=== PATIENT | female | born 1990 | race Caucasian/White ===

== ENCOUNTER 2017-11-18 20:29 | Emergency (ER) | payer OTHER ==
--- NOTE | 2017-11-18 21:42 | ED ---
General Adult HPI - General Chief complaint: Abdominal Pain Stated complaint: upper abdominal pain/blood in stool Time Seen by Provider: 11/18/17 21:28 Source: patient, RN notes reviewed, old records reviewed Mode of arrival: ambulatory Limitations: no limitations - History of Present Illness Initial comments: 26-year-old female presents for evaluation of abdominal pain and rectal bleeding. Patient states she has had intermittent abdominal pain for the past 4 days. This is been accompanied by significant amount of diarrhea. Over the past 24 hours or diarrhea has improved she still had intermittent crampy abdominal pain which is primarily epigastric although it is somewhat generalized as well. Today she developed 2 episodes of rectal bleeding. First episode was with bowel movement was small amount of blood-tinged second episode was brought alone with no stools was bright red. No history of ulcerative colitis or Crohn's disease. No recent travel. She states her pain is still present however it is improved. Has been approximately every 45 minutes with relief in between episodes. - Related Data Home Medications Medication Instructions Recorded Confirmed No Known Home Medications 11/18/17 11/18/17 Allergies Allergy/AdvReac Type Severity Reaction Status Date / Time No Known Allergies Allergy Verified 11/18/17 21:06 Review of Systems ROS Statement: Those systems with pertinent positive or pertinent negative responses have been documented in the HPI. ROS Other: All systems not noted in ROS Statement are negative. Past Medical History Past Medical History: No Reported History Additional Past Medical History / Comment(s): Patient has a history of renal calculi. degenerative disc o History of Any Multi-Drug Resistant Organisms: None Reported Past Surgical History: Ear Surgery Additional Past Surgical History / Comment(s): lithotripsy Past Anesthesia/Blood Transfusion Reactions: No Reported Reaction Past Psychological History: No Psychological Hx Reported Smoking Status: Current every day smoker Past Alcohol Use History: Occasional Past Drug Use History: None Reported - Past Family History Mother Family Medical History: No Reported History General Exam Limitations: no limitations General appearance: alert, in no apparent distress Head exam: Present: atraumatic, normocephalic Eye exam: Present: normal appearance, PERRL, EOMI Neck exam: Present: normal inspection. Absent: tenderness, meningismus Respiratory exam: Present: normal lung sounds bilaterally. Absent: respiratory distress Cardiovascular Exam: Present: regular rate, normal rhythm GI/Abdominal exam: Present: soft, tenderness (Epigastric tenderness to palpation ). Absent: distended, guarding, rebound Rectal exam: Present: normal inspection. Absent: black stool, bloody stool, hemorrhoids Extremities exam: Present: normal inspection, normal capillary refill. Absent: pedal edema Neurological exam: Present: alert, oriented X3, CN II-XII intact. Absent: motor sensory deficit Psychiatric exam: Present: normal affect, normal mood Skin exam: Present: warm, dry, intact. Absent: cyanosis, diaphoretic Course Vital Signs 11/18/17 20:45 Temperature 98.2 F Pulse Rate 96 Respiratory 18 Rate Blood Pressure 115/78 O2 Sat by Pulse 99 Oximetry Medical Decision Making - Medical Decision Making 26-year-old female presenting with diarrhea for 4 days which became bloody and crampy abdominal pain. Laboratory studies reveal stable hemoglobin 14.9, mildly leukocyte ptosis at 13.1, S are normal, urinalysis is negative, occult blood is positive, no melena or bright red rectal bleeding. No gross hemorrhage. X-ray negative for obstruction or free air. Patient's history is concerning for colitis. She is offered computed tomography scan for additional evaluation, she declines, she prefers to be discharged home. She is well- appearing, abdomen is soft with no peritoneal signs. She will be discharged home she will monitor stool output. She will follow-up with her primary care physician for reevaluation. - Lab Data Result diagrams: 11/18/17 21:43 11/18/17 21:43 Lab Results 11/18/17 11/18/17 11/18/17 Range/Units 21:36 21:36 21:38 WBC (3.8-10.6) k/uL RBC (3.80-5.40) m/uL Hgb (11.4-16.0) gm/dL Hct (34.0-46.0) % MCV (80.0-100.0) fL MCH (25.0-35.0) pg MCHC (31.0-37.0) g/dL RDW (11.5-15.5) % Plt Count (150-450) k/uL Neutrophils % % Lymphocytes % % Monocytes % % Eosinophils % % Basophils % % Neutrophils # (1.3-7.7) k/uL Lymphocytes # (1.0-4.8) k/uL Monocytes # (0-1.0) k/uL Eosinophils # (0-0.7) k/uL Basophils # (0-0.2) k/uL PT (9.0-12.0) sec INR (<1.2) APTT (22.0-30.0) sec Sodium (137-145) mmol/L Potassium (3.5-5.1) mmol/L Chloride (98-107) mmol/L Carbon Dioxide (22-30) mmol/L Anion Gap mmol/L BUN (7-17) mg/dL Creatinine (0.52-1.04) mg/dL Est GFR (CKD-EPI)AfAm (>60 ml/min/1.73 sqM) Est GFR (CKD-EPI)NonAf (>60 ml/min/1.73 sqM) Glucose (74-99) mg/dL Plasma Lactic Acid Mason (0.7-2.0) mmol/L Calcium (8.4-10.2) mg/dL Total Bilirubin (0.2-1.3) mg/dL AST (14-36) U/L ALT (9-52) U/L Alkaline Phosphatase (38-126) U/L Total Protein (6.3-8.2) g/dL Albumin (3.5-5.0) g/dL Amylase (30-110) U/L Lipase (23-300) U/L Urine Color Light Yellow Urine Appearance Cloudy H (Clear) Urine pH 6.5 (5.0-8.0) Ur Specific [place] 1.013 (1.001-1.035) Urine Protein Negative (Negative) Urine Glucose (UA) Negative (Negative) Urine Ketones Negative (Negative) Urine Blood Negative (Negative) Urine Nitrite Negative (Negative) Urine Bilirubin Negative (Negative) Urine Urobilinogen <2.0 (<2.0) mg/dL Ur Leukocyte Esterase Negative (Negative) Ur Squamous Epith Cells <1 (0-4) /hpf Amorphous Sediment Occasional H (None) /hpf Urine Mucus Rare H (None) /hpf Urine HCG, Qual Not Detected (Not Detectd) Stool Occult Blood Positive H (Negative) 11/18/17 11/18/17 11/18/17 Range/Units 21:43 21:43 21:43 WBC 13.1 H (3.8-10.6) k/uL RBC 4.97 (3.80-5.40) m/uL Hgb 14.9 (11.4-16.0) gm/dL Hct 42.7 (34.0-46.0) % MCV 85.9 (80.0-100.0) fL MCH 30.0 (25.0-35.0) pg MCHC 34.9 (31.0-37.0) g/dL RDW 13.7 (11.5-15.5) % Plt Count 129 L (150-450) k/uL Neutrophils % 62 % Lymphocytes % 28 % Monocytes % 5 % Eosinophils % 3 % Basophils % 1 % Neutrophils # 8.1 H (1.3-7.7) k/uL Lymphocytes # 3.6 (1.0-4.8) k/uL Monocytes # 0.7 (0-1.0) k/uL Eosinophils # 0.4 (0-0.7) k/uL Basophils # 0.1 (0-0.2) k/uL PT (9.0-12.0) sec INR (<1.2) APTT (22.0-30.0) sec Sodium 140 (137-145) mmol/L Potassium 4.0 (3.5-5.1) mmol/L Chloride 104 (98-107) mmol/L Carbon Dioxide 23 (22-30) mmol/L Anion Gap 13 mmol/L BUN 13 (7-17) mg/dL Creatinine 0.72 (0.52-1.04) mg/dL Est GFR (CKD-EPI)AfAm >90 (>60 ml/min/1.73 sqM) Est GFR (CKD-EPI)NonAf >90 (>60 ml/min/1.73 sqM) Glucose 92 (74-99) mg/dL Plasma Lactic Acid Mason 0.7 (0.7-2.0) mmol/L Calcium 9.4 (8.4-10.2) mg/dL Total Bilirubin 0.3 (0.2-1.3) mg/dL AST 31 (14-36) U/L ALT 39 (9-52) U/L Alkaline Phosphatase 90 (38-126) U/L Total Protein 6.9 (6.3-8.2) g/dL Albumin 4.2 (3.5-5.0) g/dL Amylase 46 (30-110) U/L Lipase 139 (23-300) U/L Urine Color Urine Appearance (Clear) Urine pH (5.0-8.0) Ur Specific [place] (1.001-1.035) Urine Protein (Negative) Urine Glucose (UA) (Negative) Urine Ketones (Negative) Urine Blood (Negative) Urine Nitrite (Negative) Urine Bilirubin (Negative) Urine Urobilinogen (<2.0) mg/dL Ur Leukocyte Esterase (Negative) Ur Squamous Epith Cells (0-4) /hpf Amorphous Sediment (None) /hpf Urine Mucus (None) /hpf Urine HCG, Qual (Not Detectd) Stool Occult Blood (Negative) 11/18/17 Range/Units 21:43 WBC (3.8-10.6) k/uL RBC (3.80-5.40) m/uL Hgb (11.4-16.0) gm/dL Hct (34.0-46.0) % MCV (80.0-100.0) fL MCH (25.0-35.0) pg MCHC (31.0-37.0) g/dL RDW (11.5-15.5) % Plt Count (150-450) k/uL Neutrophils % % Lymphocytes % % Monocytes % % Eosinophils % % Basophils % % Neutrophils # (1.3-7.7) k/uL Lymphocytes # (1.0-4.8) k/uL Monocytes # (0-1.0) k/uL Eosinophils # (0-0.7) k/uL Basophils # (0-0.2) k/uL PT 9.4 (9.0-12.0) sec INR 0.9 (<1.2) APTT 23.0 (22.0-30.0) sec Sodium (137-145) mmol/L Potassium (3.5-5.1) mmol/L Chloride (98-107) mmol/L Carbon Dioxide (22-30) mmol/L Anion Gap mmol/L BUN (7-17) mg/dL Creatinine (0.52-1.04) mg/dL Est GFR (CKD-EPI)AfAm (>60 ml/min/1.73 sqM) Est GFR (CKD-EPI)NonAf (>60 ml/min/1.73 sqM) Glucose (74-99) mg/dL Plasma Lactic Acid Mason (0.7-2.0) mmol/L Calcium (8.4-10.2) mg/dL Total Bilirubin (0.2-1.3) mg/dL AST (14-36) U/L ALT (9-52) U/L Alkaline Phosphatase (38-126) U/L Total Protein (6.3-8.2) g/dL Albumin (3.5-5.0) g/dL Amylase (30-110) U/L Lipase (23-300) U/L Urine Color Urine Appearance (Clear) Urine pH (5.0-8.0) Ur Specific [place] (1.001-1.035) Urine Protein (Negative) Urine Glucose (UA) (Negative) Urine Ketones (Negative) Urine Blood (Negative) Urine Nitrite (Negative) Urine Bilirubin (Negative) Urine Urobilinogen (<2.0) mg/dL Ur Leukocyte Esterase (Negative) Ur Squamous Epith Cells (0-4) /hpf Amorphous Sediment (None) /hpf Urine Mucus (None) /hpf Urine HCG, Qual (Not Detectd) Stool Occult Blood (Negative) Disposition Clinical Impression: Abdominal pain Disposition: HOME SELF-CARE Condition: Stable Instructions: Abdominal Pain (ED), Colitis (ED) Is patient prescribed a controlled substance at d/c from ED?: No Referrals: Norma Allred MD [Primary Care Provider] - 1-2 days Time of Disposition: 23:07
[2017-11-18 21:56] LABS: Basophils # (A) 0.1 k/uL (0-0.2); Basophils % (A) 1 %; Eosinophils # (A) 0.4 k/uL (0-0.7); Eosinophils % (A) 3 %; HCT 42.7 % (34.0-46.0); HGB 14.9 gm/dL (11.4-16.0); Lymphocytes # (A) 3.6 k/uL (1.0-4.8); Lymphocytes % (A) 28 %; MCHC 34.9 g/dL (31.0-37.0); MCV 85.9 fL (80.0-100.0); Monocytes # (A) 0.7 k/uL (0-1.0); Monocytes % (A) 5 %; Neutrophils # (A) 8.1 k/uL (1.3-7.7); Neutrophils % (A) 62 %; Platelet Count 129 k/uL (150-450); RBC 4.97 m/uL (3.80-5.40); RDW 13.7 % (11.5-15.5); WBC 13.1 k/uL (3.8-10.6)
[2017-11-18 22:00] LABS: Amorphous Sediment,Urine Occasional /hpf; Appearance,Urine Cloudy (Clear); Bilirubin,Urine Negative (Negative); Blood,Urine Negative (Negative); Color,Urine Light Yellow; Glucose,Urine (UA) Negative (Negative); Ketones,Urine Negative (Negative); Leukocyte Esterase,Urine Negative (Negative); Mucus,Urine Rare /hpf; Nitrite,Urine Negative (Negative); PH, Urine 6.5 (5.0-8.0); Protein,Urine Negative (Negative); Specific Gravity,Urine 1.013 (1.001-1.035); Squamous Epithelial Cell,Urine <1 /hpf (0-4); Urobilinogen,Urine <2.0 mg/dL (<2.0)
[2017-11-18 22:05] LABS: INR 0.9 (<1.2); Prothrombin Time 9.4 sec (9.0-12.0)
--- NOTE | 2017-11-18 22:07 | XR ---
EXAMINATION TYPE: XR KUB 2 views DATE OF EXAM: 11/18/2017 COMPARISON: 02/17/2012 HISTORY: Upper abdominal pain and bright red rectal bleeding. TECHNIQUE: 2 upright views FINDINGS: The visualized lung bases and pleural spaces are negative. There is no pneumoperitoneum or pneumatosis. Bowel gas pattern is unremarkable. No acute soft tissue or skeletal findings. IMPRESSION: Negative examination.
[2017-11-18 22:09] LABS: ALT 39 U/L (9-52); AST 31 U/L (14-36); Albumin 4.2 g/dL (3.5-5.0); Alkaline Phosphatase 90 U/L (38-126); Amylase 46 U/L (30-110); Anion Gap 13 mmol/L; Blood Urea Nitrogen 13 mg/dL (7-17); Calcium 9.4 mg/dL (8.4-10.2); Carbon Dioxide 23 mmol/L (22-30); Chloride 104 mmol/L (98-107); Glucose 92 mg/dL (74-99); Lipase 139 U/L (23-300); Sodium 140 mmol/L (137-145); Total Bilirubin 0.3 mg/dL (0.2-1.3); Total Protein 6.9 g/dL (6.3-8.2)
[2017-11-18 23:25] VITALS: BP 132/59; PULSE 66; RESP 16; TEMP 96.7
== END 2017-11-18 23:25 | disposition home or self-care (01) ==
LOC: EC 20:29
DX: R10.13 Epigastric pain (principal); D72.829 Elevated white blood cell count, unspecified; R10.84 Generalized abdominal pain; R19.7 Diarrhea, unspecified; F17.200 Nicotine dependence, unspecified, uncomplicated
CPT/HCPCS: 36415; 74018; 80053; 81001; 81025; 82150; 82272; 83605; 83690; 85025; 85610; 85730; 99284

== ENCOUNTER 2018-01-19 08:52 | Day surgery (SDC) | payer OTHER ==
[2018-01-14 13:18] VITALS: BMI 34.7
[~2018-01-19 08:52] MED LIST: LACTATED RINGERS 1,000 ML IV SCH; LIDOCAINE 1% 20 ML VIAL (10MG/ML) FOR IV START INTRADERMA PRN
[2018-01-19 09:16] VITALS: TEMP 97.7
[2018-01-19] MEDS ORDERED: LACTATED RINGERS 1,000 ML IV ONE (09:26)
[2018-01-19] MEDS ORDERED: PROPOFOL 10 MG/ML 20 ML VIAL IV ONE (10:12)
--- NOTE | 2018-01-19 10:49 | P.PCN ---
Date of Procedure: 01/19/18 Procedure(s) Performed: Procedure: Colonoscopy and biopsy. Preoperative diagnosis: Rectal bleeding. Postoperative diagnosis: Diminutive polyp in the distal sigmoid biopsied, otherwise, exam of the colon and terminal ileum within normal limits. Preparation: HalfLytely prep. Sedation: Was provided by anesthesia. Brief clinical history: The patient is a 27-year-old female who is scheduled for this evaluation because of history of diarrhea and rectal bleeding. The patient reported an illness with diarrhea followed by 6 days of bleeding that has since improved. The patient is symptom free for the last month. There was concern of colitis and she was thus scheduled for this evaluation. The patient has no extraintestinal manifestations of inflammatory bowel disease. No family history of inflammatory bowel disease. She has no rectal symptoms at this time. Procedure: With the patient on her left lateral decubitus position and after informed consent and adequate sedation, the perianal area was inspected and it did not show any fissures or fistulas. There were no masses felt on digital rectal examination. The Olympus CFQ 160L video colonoscope was then inserted in the rectum in the usual fashion and advanced to the cecum. I intubated the ileocecal valve and examined the terminal ileum. Terminal ileum and colon appeared healthy with no edema, erythema, friability, ulceration, exudation or spontaneous bleeding. No obvious diverticular disease. There was a diminutive polyp in the distal sigmoid which I biopsied. I retroflexed the endoscope in the rectum before the endoscope was withdrawn. No significant findings were seen or any evidence of bleeding. The patient tolerated the procedure well. Plan: The patient was reassured. It is likely that her illness was a self- limited colitis or a bout of gastroenteritis from which she has fully recovered. She will follow-up with you as planned and I will be happy to see in the future if her symptoms recur.
[2018-01-19 11:02] VITALS: BP 105/67; PULSE 73; RESP 16
== END 2018-01-19 11:42 | disposition home or self-care (01) ==
LOC: ORWHC2ENDO 08:52
DX: K63.5 Polyp of colon (principal); F17.210 Nicotine dependence, cigarettes, uncomplicated; Z87.442 Personal history of urinary calculi
CPT/HCPCS: 81025; 88305; 45380; J2704

== ENCOUNTER 2018-06-14 13:38 | Emergency (ER) | payer OTHER ==
[2018-06-14] MEDS ORDERED: DIAZEPAM 5 MG/ML 2 ML INJ IM ONE (14:24)
[2018-06-14] MEDS ORDERED: KETOROLAC 30 MG/ML 1 ML VIAL IM STA (14:24)
--- NOTE | 2018-06-14 14:35 | ED ---
Neck Injury/Pain HPI - General Chief Complaint: Neck Pain/Injury Stated Complaint: neck and arm pain Mode of arrival: ambulatory Limitations: no limitations - History of Present Illness Initial Comments: 27-year-old female past medical history of degenerative disc disease of the cervical spine presenting today for chief complaint of right-sided neck and shoulder pain x1 day. Patient states that she was shoveling snow and did a lot of cleaning yesterday. Yesterday evening she noticed right-sided posterior neck pain that radiated towards right shoulder. Describes it as a sharp shooting pain. She states with movement she feels muscle spasm throughout her posterior neck and down her arm with movement of neck or right shoulder. Patient denies any loss of sensation, coolness, pallor, denies inability to move right shoulder, but states she does not want to because it will cause spasm in her neck. Pt states pain increases with rotation toward the right shoulder. Pt denies falling, hitting head or neck, new low back pain, headache, photophobia, fever, chills, nausea, vomiting, dizziness, visual changes, diplopia or any other changes. Pt denies weakness of the UE. Remainder of ROS negative, patient denies any recent shortness of breath, chest pain, abdominal pain, numbness or , dysuria or hematuria, constipation or diarrhea, headaches or visual changes, or any other complaints. Upon arrival pt refused to turn head to the right, appears uncomfortable. HR elevated mildly. - Related Data Previous Rx's Medication Instructions Recorded Cyclobenzaprine [Flexeril] 5 mg PO TID 5 Days #15 tablet 06/14/18 Ibuprofen 800 mg PO Q8H PRN 7 Days #21 tablet 06/14/18 Allergies Allergy/AdvReac Type Severity Reaction Status Date / Time No Known Allergies Allergy Verified 06/14/18 14:04 Review of Systems ROS Statement: Those systems with pertinent positive or pertinent negative responses have been documented in the HPI. ROS Other: All systems not noted in ROS Statement are negative. Past Medical History Past Medical History: GI Bleed, Musculoskeletal Disorder Additional Past Medical History / Comment(s): Hx kidney stones; degenerative disc History of Any Multi-Drug Resistant Organisms: None Reported Past Surgical History: Ear Surgery, Tubal Ligation Additional Past Surgical History / Comment(s): lithotripsy Past Anesthesia/Blood Transfusion Reactions: No Reported Reaction Past Psychological History: No Psychological Hx Reported Smoking Status: Current every day smoker - Past Family History Mother Family Medical History: No Reported History General Exam - General Exam Comments Initial Comments: General: The patient is awake and alert, in no distress. Appear uncomfortable holding neck to the left. Eye: +3 mm pupils are equal, round and reactive to light, extra-ocular movements are intact. No nystagmus. There is normal conjunctiva bilaterally. No signs of icterus. Ears, nose, mouth and throat: There are moist mucous membranes and no oral lesions. Neck: The neck is supple, there is no tenderness or JVD. Tenderness to palpation of the right paravertebral muscles, palpable spasm. Small knot noted. Patient refuses to turn head to the right, induces spasm. No midline tenderness to patient of the cervical thoracic spine. No carotid artery bruits. Cardiovascular: There is a regular rate and rhythm. No murmur, rub or gallop is appreciated. Respiratory: Lungs are clear to auscultation, respirations are non-labored, breath sounds are equal. No wheezes, stridor, rales, or rhonchi. Musculoskeletal: Normal ROM of the UE with tenderness of the right shoulder/ neck with ROM. Pt refuses to range right shoulder secondary to muscle spasm of neck. Strength 5/5 of the UE (tested elbow and below of the right UE). Sensation intact of the UE b/l from shoulder (badge region to the hand). Radial pulses equal bilaterally 2+. Patient is able to make the okay, fingers crossed , thumbs-up and extend at the wrist bilaterally. No noted weakness on the right or left upper extremity. Neurological: A&O x 3. CN II-XII intact, There are no obvious motor or sensory deficits. Coordination appears grossly intact. Speech is normal. Skin: Skin is warm and dry and no rashes or lesions are noted. Psychiatric: Cooperative, appropriate mood & affect, normal judgment. Limitations: no limitations Course Vital Signs 06/14/18 06/14/18 14:02 15:35 Temperature 98.2 F 98.7 F Pulse Rate 104 H 84 Respiratory 16 18 Rate Blood Pressure 121/87 110/69 O2 Sat by Pulse 100 99 Oximetry Medical Decision Making - Medical Decision Making Pt denies stating she is "fixed". Physical examination and history concerning for muscle spasm, cervical spine strain. Pt neurovascular intact. Given no history of trauma or injury to the neck I have no suspicion for osseous injury. Patient will be given Valium for muscle spasm as well as Toradol for pain management. Patient be discharged with muscle relaxer as well as ibuprofen 800. Patient is instructed to apply heat for 20 minutes at a time with 20 minutes in between applications, up to 6 times a day for comfort. Pt is to f/u with primary care provider in the next 1-2 days. Pt is agreeable with plan and discharge. Discussed case with Dr. Joseph who agreed with the impression and plan. Patient discharged in stable condition. Disposition Clinical Impression: Cervical muscle strain, Muscle spasm Disposition: HOME SELF-CARE Instructions (If sedation given, give patient instructions): Cervical Strain ( ED) Additional Instructions: Please use medication as discussed, no driving, operating machinery, working drinking alcohol using opioids are benzos as discussed all taking the medication Flexeril. Please follow-up with family doctor in the next 2 days, please follow-up with her pain specialist as scheduled. Please see orthopedic surgery in the next 1-2 days for further evaluation. Please return to emergency room if the symptoms increase, persist or worsen or for any other concerns, as discussed. Prescriptions: Cyclobenzaprine [Flexeril] 5 mg PO TID 5 Days #15 tablet Ibuprofen 800 mg PO Q8H PRN 7 Days #21 tablet PRN Reason: Pain Is patient prescribed a controlled substance at d/c from ED?: No Referrals: Norma Allred MD [Primary Care Provider] - 1-2 days Karthik Addison MD [Medical Doctor] - 1-2 days Time of Disposition: 14:39
[2018-06-14 15:37] VITALS: BP 110/69; PULSE 84; RESP 18; TEMP 98.7
== END 2018-06-14 15:35 | disposition home or self-care (01) ==
LOC: EC 13:38
DX: S16.1XXA Strain of muscle, fascia and tendon at neck level, initial encounter (principal); M25.511 Pain in right shoulder; M62.838 Other muscle spasm; F17.200 Nicotine dependence, unspecified, uncomplicated; Y93.H1 Activity, digging, shoveling and raking; Y93.E5 Activity, floor mopping and cleaning; X50.9XXA Other and unspecified overexertion or strenuous movements or postures, initial encounter
CPT/HCPCS: 99283 ×2; 96372 ×3; J3360; J1885

== ENCOUNTER → 2020-06-01 | Outpatient (CLI) | payer OTHER ==
--- NOTE | 2020-06-01 16:06 | MR ---
EXAMINATION TYPE: MR lumbar spine wo con DATE OF EXAM: 06/01/2020 COMPARISON: MRI lumbar spine July 01, 2013 HISTORY: Low back pain that travels down right leg. Multiple [place]. TECHNIQUE: Multiplanar, multisequence imaging of the lumbar spine is performed without IV contrast. FINDINGS: Will use same counting sequences used as on prior MRI study. Sagittal images of the lumbar spine show vertebral body heights to remain satisfactory. Slight grade 1 retrolisthesis L4 on L5. Dis c desiccation L4-L5 level with mild to moderate disc space narrowing redemonstrated otherwise the int ervertebral discs demonstrate normal heights and hydration. There is at least partial sacralization possible bilateral sacralization of the labeled L5 segment The conus medullaris remains normal in pos ition and signal ending in inferior T12 level. The bone marrow signal intensity is within normal moise its. Axial images show T12-L1, L1-L2, L2-L3, and L3-L4 levels all to remain within normal limits. Axial images at the L4-L5 level show spondylolisthesis with mild broad disc bulge minimally effaces t he anterior thecal sac. Mild facet arthropathy bilaterally. Bilateral neural foramina are patent. Axial images at L5-S1 level remain within normal limits. Paraspinal muscle bulk is preserved. IMPRESSION: Persistent transitional type L5 vertebra. Persistent degenerative change L4-L5 level. No significant change or progression from 2014 MRI
== END | disposition home or self-care (01) ==
LOC: RADMRIMAIN 14:59
PROVIDERS: ATTEND Psychiatry & Neurology Neurology
DX: M47.816 Spondylosis without myelopathy or radiculopathy, lumbar region (principal)
CPT/HCPCS: 72148

== ENCOUNTER 2022-03-21 09:21 | Emergency (ER) | payer OTHER ==
[2022-03-21 09:33] VITALS: RESP 18; TEMP 98.4
--- NOTE | 2022-03-21 10:26 | ED ---
Lower Extremity Injury HPI - General Chief Complaint: Extremity Injury, Lower Stated Complaint: lt ankle injury Time Seen by Provider: 03/21/22 09:33 Source: patient Mode of arrival: ambulatory Limitations: no limitations - History of Present Illness Initial Comments: This patient is a 31-year-old woman who presents to have evaluation of left ankle/foot pain. Patient states that she was walking on some stool cups last night leaving a home and she had inversion of the ankle. She states that there was a little bit of pain but it was manageable at the time. She states that she went home and rested and noticed that her ankle had become swollen and then was more pain to the lateral aspect of the ankle and dorsum of foot. Patient denies weakness. MD Complaint: ankle injury, foot injury Onset/Timin -: hour(s) Injury: Ankle: Left, Foot: Left Type of Injury: inversion Place: street/outdoors Severity: moderate Improves With: rest Worsens With: weight bearing Context: fall Associated Symptoms: swelling Treatments Prior to Arrival: NSAIDS - Related Data Previous Rx's Medication Instructions Recorded Cyclobenzaprine [Flexeril] 5 mg PO TID 5 Days #15 tablet 06/14/18 Ibuprofen 800 mg PO Q8H PRN 7 Days #21 tablet 06/14/18 Allergies Allergy/AdvReac Type Severity Reaction Status Date / Time No Known Allergies Allergy Verified 06/14/18 14:04 Review of Systems ROS Statement: Those systems with pertinent positive or pertinent negative responses have been documented in the HPI. ROS Other: All systems not noted in ROS Statement are negative. Constitutional: Denies: fever Musculoskeletal: Reports: as per HPI, joint swelling, arthralgia Skin: Denies: rash, lesions Neurological: Denies: weakness, numbness Past Medical History Past Medical History: GI Bleed, Musculoskeletal Disorder Additional Past Medical History / Comment(s): Hx kidney stones; degenerative disc History of Any Multi-Drug Resistant Organisms: None Reported Past Surgical History: Ear Surgery, Tubal Ligation Additional Past Surgical History / Comment(s): lithotripsy Past Anesthesia/Blood Transfusion Reactions: No Reported Reaction Past Psychological History: No Psychological Hx Reported Smoking Status: Current every day smoker Past Alcohol Use History: Occasional Past Drug Use History: Marijuana - Past Family History Mother Family Medical History: No Reported History General Exam Limitations: no limitations General appearance: alert, in no apparent distress Head exam: Present: atraumatic, normocephalic Cardiovascular Exam: Present: other (Symmetric and normal pedal pulses. Normal capillary refill.) Left Knee exam: Present: normal inspection, full ROM. Absent: tenderness, swelling Lower Leg exam: Present: normal inspection, full ROM. Absent: tenderness, swelling Ankle exam: Present: tenderness, swelling. Absent: abrasion, laceration, ecchymosis, deformity, crepitus, dislocation Foot/Toe exam: Present: tenderness, swelling. Absent: abrasion, laceration, ecchymosis, deformity, crepitus, dislocation, erythema, amputation, calcaneal tenderness, tenderness at base of 5th metatarsal Neurovascular tendon exam: Present: no vascular compromise. Absent: pulse deficit, abnormal cap refill, motor deficit, sensory deficit, tendon deficit Neurological exam: Present: alert. Absent: motor sensory deficit (No deficit throughout the left foot) Skin exam: Present: warm, dry, intact, normal color. Absent: rash Course Vital Signs 03/21/22 09:30 Temperature 98.4 F Pulse Rate 71 Respiratory 18 Rate Blood Pressure 130/89 O2 Sat by Pulse 99 Oximetry Disposition Clinical Impression: Left ankle sprain Disposition: HOME SELF-CARE Condition: Good Instructions (If sedation given, give patient instructions): Ankle Sprain (ED) Is patient prescribed a controlled substance at d/c from ED?: No Referrals: None,Stated [Primary Care Provider] - 1-2 days
--- NOTE | 2022-03-21 10:58 | XR ---
EXAMINATION TYPE: XR foot complete LT DATE OF EXAM: 03/21/2022 CLINICAL HISTORY: pain TECHNIQUE: Frontal, lateral and oblique images of the left foot are obtained. COMPARISON: None. FINDINGS: There is no acute fracture/dislocation evident. The joint spaces appear within normal moise its. The overlying soft tissue appears unremarkable. IMPRESSION: There is no acute fracture or dislocation. ICD 10 NO FRACTURE, INITIAL EVALUATION
--- NOTE | 2022-03-21 10:59 | XR ---
EXAMINATION TYPE: XR ankle complete LT DATE OF EXAM: 03/21/2022 COMPARISON: NONE HISTORY: Pain TECHNIQUE: 3 views of the left ankle are submitted for evaluation. FINDINGS: There is no evidence for fracture or dislocation. Ankle mortise is intact. Soft tissues are within normal limits. IMPRESSION: 1. No evidence for acute fracture.
[2022-03-21 11:36] VITALS: BP 127/84; PULSE 72
== END 2022-03-21 11:36 | disposition home or self-care (01) ==
LOC: EC 09:21
DX: S93.402A Sprain of unspecified ligament of left ankle, initial encounter (principal); F17.200 Nicotine dependence, unspecified, uncomplicated; F12.90 Cannabis use, unspecified, uncomplicated; X58.XXXA Exposure to other specified factors, initial encounter; Y93.01 Activity, walking, marching and hiking; Y92.009 Unspecified place in unspecified non-institutional (private) residence as the place of occurrence of the external cause
CPT/HCPCS: 99283